=== PATIENT | male | born 1975 | race Caucasian/White ===

== ENCOUNTER 2021-10-07 07:43 | Outpatient (CLI) | payer BC | END 2021-10-07 07:44 | disposition home or self-care (01) | LOC: CSHCT 07:43 | PROVIDERS: ATTEND Family Medicine | DX: I26.99 Other pulmonary embolism without acute cor pulmonale (principal); U09.9 Post COVID-19 condition, unspecified; E27.8 Other specified disorders of adrenal gland; K76.0 Fatty (change of) liver, not elsewhere classified | CPT/HCPCS: 71275 ==

== ENCOUNTER 2022-04-09 08:07 | Outpatient (CLI) | payer BC | END 2022-04-09 08:08 | disposition home or self-care (01) | LOC: CSHLAB 08:07 | PROVIDERS: ATTEND Internal Medicine Pulmonary Disease | DX: Z20.822 Contact with and (suspected) exposure to COVID-19 (principal) | CPT/HCPCS: 87811 ==

== ENCOUNTER 2022-04-13 07:45 | Outpatient (CLI) | payer BC | END 2022-04-13 07:46 | disposition home or self-care (01) | LOC: CSHCP 07:45 | PROVIDERS: ATTEND Internal Medicine Pulmonary Disease | DX: R06.00 Dyspnea, unspecified (principal) | CPT/HCPCS: 94060; 94726; 94729; 94760 ==